=== PATIENT | female | born 2000 | race African-American/Black ===

== ENCOUNTER 2022-06-26 07:39 | Inpatient (IN) | payer SELFPAY ==
[2022-06-26] VITALS (787 sets, daily range): BP systolic 99–131; BP diastolic 54–86; PULSE 112–123; TEMP 98–99.5; O2SAT 64–100
[~2022-06-26] VITALS: Ht 167.6 cm; Wt 72.6 kg
[2022-06-26 08:03] LABS: BASO # 0.1 K/mm3 (0.0-0.2); BASO % 0.6 % (0.0-2.0); EOS # 0.4 K/mm3 (0.0-0.7); EOS % 4.1 % (0.0-4.0); GRAN # 7.5 K/mm3 (1.4-6.5); GRAN % 75.5 % (42.2-75.2); HEMATOCRIT 38.7 % (37.0-47.0); HEMOGLOBIN 13.1 g/dl (12.5-16.0); LYMPH # 1.3 K/mm3 (1.2-3.4); LYMPH % 12.9 % (20.0-51.0); MEAN CELL VOLUME 94 fl (80.0-100.0); MEAN CORPUSCULAR HEMOGLOBIN 32 pg (27-31); MEAN CORPUSCULAR HGB CONC 34 g/dl (33.0-37.0); MEAN PLATELET VOLUME 9.1 fl (7.4-10.4); MONO # 0.6 K/mm3 (0.1-0.6); MONO % 6.5 % (1.7-9.3); PLATELET COUNT 208 K/mm3 (130-400); REDCELL DISTRIBUTION WIDTH-CV 12.2 % (11.5-14.5)
[2022-06-26 08:18] LABS: ALANINE AMINOTRANSFERASE 12 U/L (0-55); ALBUMIN 3.8 gm/dL (3.5-5.0); ALKALINE PHOSPHATASE 68 U/L (40-150); ANION GAP 11 mmol/L (7-16); AST,SGOT 14 U/L (5-34); BILIRUBIN,TOTAL 0.3 mg/dL (0.2-1.2); BLOOD UREA NITROGEN 11 mg/dL (7-19); CALCIUM 8.2 mg/dL (8.4-10.2); CARBON DIOXIDE 21 mmol/L (22-29); CHLORIDE 110 mmol/L (98-107); CREATININE, serum 0.91 mg/dL (0.57-1.11); GLUCOSE 141 mg/dL (70-99); POTASSIUM 3.1 mmol/L (3.5-4.5); SODIUM 142 mmol/L (136-145); TOTAL PROTEIN 6.3 gm/dL (6.2-8.1)
[2022-06-26 08:25] LABS: TROPONIN-I < 0.010 ng/mL (0.00-0.033)
--- NOTE | 2022-06-26 10:35 | NUR ---
PT ADMITTED FROM ED WITH ASTHMA. PT IS ON 4L NC SATING 93%. PT IS SOB, WHEEZY, HOARSE VOICE. OTHER VSS. PT ORIENTED TO ROOM AND FLOOR. PT GIVEN CALL LIGHT AND INSTRUCTED TO CALL WITH ALL NEEDS. PT HAS ROOM PHONE AND CELLPHONE. NOAH FERMIN BEDSIDE. BEDSIDE. NOTIFIED OF CONSULT.
[2022-06-26 14:32] LABS: ARTERIAL BLD GAS O2 SATURATION 95.2 % (92-100); ARTERIAL BLD GAS TCO2 CT 24.1; ARTERIAL BLOOD GAS BASE EXCESS -4.1 (-2-2); ARTERIAL BLOOD GAS HCO3 22.6 meq/L (22-26); ARTERIAL BLOOD GAS PCO2 47.7 mmHg (35-45); ARTERIAL BLOOD GAS PO2 83.4 mmHg (80-100); ARTERIAL BLOOD GAS pH 7.29 (7.35-7.45)
--- NOTE | 2022-06-26 15:00 | NUR ---
1430-PT BECOMING MORE TACHYPNIC. PT REMOVED FROM BIPAP FOR 20 SECONDS FOR A DRINK AND O2 SATS DROPPED TO 77. PT TACHYCARDIC UP TO 160'S.PT BREATH SOUNDS ARE TIGHTER. PT STATES HAVING SOME ANXIETY AND WORSENING SOB. AND JAMEL NOTIFIED. ORDERS RECEIVED FOR ATIVAN, NEB CHANGES AND EKG ORDERED.
--- NOTE | 2022-06-26 15:48 | NUR ---
LAST DUONEB TREATMENT ENDED AT 1455. PATIENT SOUNDED VERY DIM WITH A VERY EXTENSIVE INSP/EXP WHEEZE. JAVIDT REQUESTED A BREAK FROM BIPAP SO, ABG WAS DONE AND VALUES WERE TRENDING TO BE BETTER, BUT STILL ON THE RESP ACIDOTIC TREND. REMOVING THE BIPAP MASK FOR A MASK NEBULIZER TREATMENT, PATIENT GREW MORE ANXIOUS AND SATURATIONS DROPPED TO THE LOWEST AT 77%. PT WAS PLACED BACK ON BIPAP WITH SOME ATIVAN AND Q30 MIN 2.5 ALB NEB PER . PATIENT IS CURRENTLY ON 31/07 R30 40%.
--- NOTE | 2022-06-26 17:04 | NUR ---
Bria requested Social Work follow up per patient report of possible self-pay and may benefit from social work consultation regarding resources. [employer] unable to meet with patient this date for intake assessment/discharge planning and requests continued Social Work follow up tomorrow.
[2022-06-27] VITALS (1245 sets, daily range): BP systolic 91–132; BP diastolic 46–91; PULSE 79–122; TEMP 98–98.7; O2SAT 58–100
[2022-06-27 06:49] LABS: HEMATOCRIT 42.1 % (37.0-47.0); HEMOGLOBIN 14.1 g/dl (12.5-16.0); MEAN CELL VOLUME 97 fl (80.0-100.0); MEAN CORPUSCULAR HEMOGLOBIN 32 pg (27-31); MEAN CORPUSCULAR HGB CONC 34 g/dl (33.0-37.0); MEAN PLATELET VOLUME 10.5 fl (7.4-10.4); PLATELET COUNT 176 K/mm3 (130-400); RED BLOOD COUNT 4.36 M/mm3 (4.10-5.30); REDCELL DISTRIBUTION WIDTH-CV 12.6 % (11.5-14.5)
[2022-06-27 07:10] LABS: CALCIUM 9.6 mg/dL (8.4-10.2); CREATININE, serum 0.77 mg/dL (0.57-1.11); MAGNESIUM 2.4 mg/dL (1.6-2.6); PHOSPHOROUS 3.8 mg/dL (2.3-4.7); POTASSIUM 4.7 mmol/L (3.5-4.5)
[2022-06-27 08:00] LABS: BAND 5 % (0-10); LYMPHOCYTE 5 % (20.0-51.0); NEUTROPHILS 87 % (42.0-75.2); PLATELET ESTIMATE NORMAL (NORMAL)
[2022-06-27 08:34] LABS: ARTERIAL BLD GAS O2 SATURATION 95.9 % (92-100); ARTERIAL BLD GAS TCO2 CT 21.3; ARTERIAL BLOOD GAS BASE EXCESS -3.1 (-2-2); ARTERIAL BLOOD GAS HCO3 20.3 meq/L (22-26); ARTERIAL BLOOD GAS PCO2 31.9 mmHg (35-45); ARTERIAL BLOOD GAS PO2 78.3 mmHg (80-100); ARTERIAL BLOOD GAS pH 7.42 (7.35-7.45)
[2022-06-28] VITALS (1213 sets, daily range): BP systolic 93–129; BP diastolic 56–90; PULSE 87–135; TEMP 97.9–98.8; O2SAT 70–100
[2022-06-28 04:38] LABS: MEAN CELL VOLUME 93 fl (80.0-100.0); MEAN CORPUSCULAR HGB CONC 34 g/dl (33.0-37.0); PLATELET COUNT 199 K/mm3 (130-400); RED BLOOD COUNT 3.77 M/mm3 (4.10-5.30); REDCELL DISTRIBUTION WIDTH-CV 12.7 % (11.5-14.5)
[2022-06-28 04:54] LABS: ALBUMIN 3.3 gm/dL (3.5-5.0); CALCIUM 8.7 mg/dL (8.4-10.2); CREATININE, serum 0.72 mg/dL (0.57-1.11); MAGNESIUM 2.2 mg/dL (1.6-2.6); PHOSPHOROUS 2.8 mg/dL (2.3-4.7); POTASSIUM 4.4 mmol/L (3.5-4.5)
[2022-06-28 05:06] LABS: HEMATOCRIT 35.2 % (37.0-47.0); MEAN CORPUSCULAR HEMOGLOBIN 32 pg (27-31)
[2022-06-28 05:14] LABS: BAND 3 % (0-10); LYMPHOCYTE 2 % (20.0-51.0); NEUTROPHILS 94 % (42.0-75.2); PLATELET ESTIMATE NORMAL (NORMAL)
--- NOTE | 2022-06-28 16:49 | NUR ---
student worker met with patient to discuss discharge planning. Patient states she lives with a roommate and is a [place] student. Patient states she has communicated with all of her professors about her hospitalization. Worker provided information on [employer] health insurance and encourages patient to view for possible plan. Patient states that she has been seen at the [facility] in [place]. Worker advised that there is a prescription assistance program at [facility] and will explore for patient use. Worker will follow up with patient. Patient plans to return home upon discharge.
[2022-06-29] VITALS (405 sets, daily range): BP systolic 123–139; BP diastolic 80–97; PULSE 75–84; TEMP 98.2–99.2; O2SAT 63–100
[2022-06-29 05:45] LABS: HEMOGLOBIN 12.4 g/dl (12.5-16.0); MEAN CELL VOLUME 92 fl (80.0-100.0); MEAN CORPUSCULAR HEMOGLOBIN 32 pg (27-31); MEAN CORPUSCULAR HGB CONC 34 g/dl (33.0-37.0); PLATELET COUNT 194 K/mm3 (130-400); RED BLOOD COUNT 3.92 M/mm3 (4.10-5.30); REDCELL DISTRIBUTION WIDTH-CV 12.8 % (11.5-14.5)
[2022-06-29 05:49] LABS: HEMATOCRIT 36.2 % (37.0-47.0)
[2022-06-29 05:57] LABS: ALBUMIN 3.4 gm/dL (3.5-5.0); CREATININE, serum 0.75 mg/dL (0.57-1.11); MAGNESIUM 2.5 mg/dL (1.6-2.6); PHOSPHOROUS 3.6 mg/dL (2.3-4.7); POTASSIUM 4.2 mmol/L (3.5-4.5)
[2022-06-29 06:26] LABS: LYMPHOCYTE 4 % (20.0-51.0); NEUTROPHILS 94 % (42.0-75.2); PLATELET ESTIMATE NORMAL (NORMAL)
--- NOTE | 2022-06-29 06:30 | NUR ---
REPORT RECEIVED FROM ARCADIO MOTA; PATIENT CURRENTLY SLEEPING IN BED, VITAL SIGNS ARE WITHIN NORMAL LIMITS AND NO FLUIDS/MEDS ARE RUNNING THROUGH HER PICC LINE THIS MORNING.
[2022-06-29] MEDS ORDERED: TRELEGY ELLIPT1 EACH IH ×2 (09:33)
[2022-06-29] MEDS ORDERED: PROAIR HFA0.09 MG/AC IH (09:33)
[2022-06-29] MEDS ORDERED: PREDNISONE10 MG PO (09:36)
[2022-06-29] MEDS ORDERED: TRELEGY ELLIPT1 EAC1 IH (09:42)
--- NOTE | 2022-06-29 13:28 | NUR ---
PATIENT LEFT UNIT AT APPROX 1305; PATIENT WAS AMBULATORY AND VITAL SIGNS WERE ALL WITHIN NORMAL LIMITS.
--- NOTE | 2022-06-29 17:27 | NUR ---
cooler worker met with patient and provided a medication voucher. 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 Worker provided patient with website to pursue looking for [employer] insurance. Patient's parents are and she is not a dependent. Worker also scheduled a visit with Dr Jack at the [facility] and provided that information to patient. Worker stressed importance of attending this visit to and to apply for their medication assistance program. Patient's trelegy inhalor is $600.00.
--- NOTE | 2022-06-29 17:29 | NUR ---
Mariama: child protective services social worker provided patient with advance directive information.
== END 2022-06-29 13:05 | disposition home or self-care (01) | DRG 189 ==
LOC: COL.ER 07:39 → ICU 10:00
PROVIDERS: Emergency Medicine; Internal Medicine Pulmonary Disease; Internal Medicine Sleep Medicine; ADMIT Internal Medicine
PROC: 5A09357 Assistance with Respiratory Ventilation, Less than 24 Consecutive Hours, Continuous Positive Airway Pressure (ICD-10-PCS; 2022-06-26)
PROC: 02HV33Z Insertion of Infusion Device into Superior Vena Cava, Percutaneous Approach (ICD-10-PCS; principal; 2022-06-27)
DX: J96.01 Acute respiratory failure with hypoxia (principal); J45.902 Unspecified asthma with status asthmaticus; E87.2 Acidosis; Z20.822 Contact with and (suspected) exposure to COVID-19; I10 Essential (primary) hypertension; B97.4 Respiratory syncytial virus as the cause of diseases classified elsewhere; B97.10 Unspecified enterovirus as the cause of diseases classified elsewhere; D72.19 Other eosinophilia; F41.9 Anxiety disorder, unspecified; J96.02 Acute respiratory failure with hypercapnia; Z72.89 Other problems related to lifestyle
CPT/HCPCS: C1751; C1892; J1644; J2060; J2405; J2920; J2930; J3475; J3480; J7030; J7120; J7512